=== PATIENT | male | born 1985 | race Caucasian/White ===

== ENCOUNTER 2022-05-04 06:17 | Outpatient (REF) | payer BC, SELFPAY ==
--- NOTE | ~2022-05-04 | FL_ITS ---
EXAMINATION: XR FLUOROSCOPY WITH IMAGES CLINICAL INFORMATION: M54.14 - Radiculopathy, thoracic region COMPARISON: None. TECHNIQUE: Fluoroscopy performed by Dr. Tony Maddox. Fluoroscopy time: 0.5 minutes. Cumulative Dose: 14.7 mGy. DAP: 1.83 Gy-cm2. Images: 3. FINDINGS: There is interlaminar dorsal spinal needle in mid thoracic region. Lateral view shows contrast in the dorsal epidural space. No visible vascular communication. FL/FL guidance in treatment room IMPRESSION: Fluoroscopy for pain management procedure.
== END 2022-05-04 06:18 | disposition home or self-care (01) ==
LOC: HO.RADIR 06:17
PROVIDERS: Visit Provider Internal Medicine
DX: M54.14 Radiculopathy, thoracic region (principal)
CPT/HCPCS: 62321; J1100

== ENCOUNTER 2022-12-23 10:00 | Outpatient (RCR) | payer BC, SELFPAY ==
--- NOTE | 2022-10-07 09:59 | MHC.PT.EP ---
[facility] [place] [facility] [place] [facility] [place] [facility] [address] [phone] F: [phone] F: [phone] F: [phone] F: [phone] Physical Therapy Plan of Care Date of Evaluation: Date of Surgery: NA Diagnosis: Radiculopathy, thoracic region Assessment: Kevyn is a 36 year old male who is referred to PT for radiculopathy of thoracic region . He reports of having thoracic pain and lateral rib pain for over 10 years. 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 He denies any trauma or falls. He recently got diagnosed with thoracic disc herniation and he was given cortisone shot for the same. He felt good for a month but then his pain returned. On PT examination he presents with TTP from T1 to T6, C2 to C5 spinous process, decreased thoracic mobility, 5/10 constant pain along rib cage, decreased scap muscle strength and altered posture. Due to these impairments he occasionally experiences pain with ADLS. He works as a director of operation. He would benefit from skilled PT to address the aforementioned impairments and improve tolerance to functional activities. PT recommended 2/week however pt stated he can come only once a week. Frequency and Duration: The patient will be seen 2/week for 5 weeks Short Term Goals: 1. Pt will have 50% decrease in pain which will help him sit without pain in 2 weeks. 2. Pt will be able to move trunk through all planes of motion without pain in 3 weeks [employer] Goals: 1. Pt will demonstrate an increase in muscle strength by 1 grade which will enable him to perform all work activities and ADLS without pain flare ups in 5 weeks 2. Pt will be independent with HEP for symptom management and maintenance following d/c in 5 weeks. Treatment Plan: Modalities to reduce pain, spasms and effusion. Manual therapy to restore motion and function. Therapeutic exercise to improve strength and flexibility. Neuromuscular re-education for posture and balance. Therapeutic activities to return to functional activities of daily living. Electronically signed by: Zeina Dyson PT DPT Please sign and return to therapist. Thank you for your referral.
--- NOTE | 2022-12-23 14:43 | MHC.PT.DC ---
[facility] [place] [facility] [place] [facility] [place] [facility] [address] [phone] F: [phone] F: [phone] F: [phone] F: [phone] Physical Therapy Discharge Report Diagnosis: Radiculopathy, thoracic region Date of Surgery: NA Date of Evaluation: 10/07/22 Date of Discharge: 12/23/22 Treatments to Date: 6 Cancellations to Date: 4 No Shows to Date: Discharge Status: Achieved Goals Improved Function Independent with HEP Discharge Summary: Kevyn has completed 6 PT visits. He has improved significantly and is independent with all HEP. He is therefore being d/c from PT. Kevyn was in agreement with the plan. Electronically signed by: Zeina Dyson, PT DPT Please sign and return to therapist. Thank you for your referral.
== END 2022-12-23 14:43 | disposition home or self-care (01) ==
LOC: HO.PT 10:00
PROVIDERS: PCP Family Medicine; Visit Provider Internal Medicine
DX: M54.14 Radiculopathy, thoracic region (principal); M47.814 Spondylosis without myelopathy or radiculopathy, thoracic region
CPT/HCPCS: 97110; 97112; 97140; 97161